=== PATIENT | female | born 1990 | race Caucasian/White ===

== ENCOUNTER → 2018-10-02 | Outpatient (CLI) | payer BC | LOC: COL.RAD 09:35 | DX: M54.5 Low back pain (principal); Z97.5 Presence of (intrauterine) contraceptive device | CPT/HCPCS: Q9967 ==

== ENCOUNTER 2023-10-17 23:33 | Inpatient (IN) | payer BC ==
[~2023-10-17] VITALS: Ht 167.6 cm; Wt 95.5 kg
--- NOTE | 2023-10-17 23:45 | NUR ---
PT TO UNIT VIA WHEELCHAIR WITH COMPLIANTS OF CTX THAT HAVE GOTTEN WORSE OVER THE LAST COUPLE OF HOURS. PT IS A G2L0 AT 38.6 WEEKS TODAY WITH A HX OF A 33 WEEK DEMISE IN 2021. PT ORIENTED TO ROOM, CHANGED INTO GOWN. EFM X2 APPLIED, VS OBTAINED, SVE OF -/-3 WITH BULGING BAG. WILL CONTRACT DR. RUIZ.
[2023-10-18] VITALS (29 sets, daily range): BP systolic 94–148; BP diastolic 51–85; PULSE 69–126; TEMP 97.8–98.4
[2023-10-18 00:26] LABS: BASO % 0.2 % (0.0-2.0); EOS # 0.1 K/mm3 (0.0-0.7); EOS % 0.5 % (0.0-4.0); GRAN # 8.1 K/mm3 (1.4-6.5); GRAN % 71.6 % (42.2-75.2); HEMATOCRIT 39.1 % (37.0-47.0); HEMOGLOBIN 13.8 g/dl (12.5-16.0); LYMPH # 1.9 K/mm3 (1.2-3.4); MEAN CELL VOLUME 90 fl (80.0-100.0); MEAN CORPUSCULAR HEMOGLOBIN 32 pg (27-31); MEAN CORPUSCULAR HGB CONC 35 g/dl (33.0-37.0); MEAN PLATELET VOLUME 10.8 fl (7.4-10.4); MONO # 1.1 K/mm3 (0.1-0.6); MONO % 10.1 % (1.7-9.3); PLATELET COUNT 165 K/mm3 (130-400); RED BLOOD COUNT 4.37 M/mm3 (4.10-5.30); REDCELL DISTRIBUTION WIDTH-CV 13.4 % (11.5-14.5)
--- NOTE | 2023-10-18 01:00 | NUR ---
[id number]: EPHEDRINE GIVEN AT 0048 FOR BP OF 94/55, FHTs REMAIN STABLE AND PT IS ASYMPTOMATIC. IMMEDIATELY FOLLOWING ADMINISTRATION A LATE DECEL INTO THE 80s OCCURRED AND RETURNED TO BASELINE IN APPROXIMATELY 1.5 MINUTES. AN EARLY DECEL INTO THE 100s OCCURRED AT 0053 AND RETURNS TO BASELINE AFTER APPROXIMATELY 1 MINUTE. BP REMAINS LOW AT 102/56, 2ND DOSE OF EPHEDRINE 10MG GIVEN IV AT 0054. FHTs REMAINS STABLE WITH BASELINE OF 135. FOLLOW UP BP AT 0058 OF 102/57. FHTs REMAIN REASSURING AND PT REMAINS ASYMPTOMATIC. NO FURTHER INTERVENTION NECESSARY.
--- NOTE | 2023-10-18 01:45 | NUR ---
[id number]: DIFFICULTY TRACING CONTRACTIONS DUE TO MATERNAL POSITION IN LEFT LATERAL WITH RIGHT LEG IN STIRRUP. TOCO ADJUSTED.
--- NOTE | 2023-10-18 02:30 | NUR ---
7568-3003: DIFFICULTY TRACING CTX PATTERN DUE TO MATERNAL POSITION IN RIGHT LATERAL WITH LEFT LEG IN STIRRIP. FHTs TACHY AT 165, DUE TO INABILITY TO TRACE CONTRACTIONS THIS NURSE UNABLE TO DETERMINE DECEL TYPE. TOCO ADJUSTED.
[2023-10-18] MEDS ORDERED: TYLENOL 500MG500 MG PO (04:23)
[2023-10-18] MEDS ORDERED: PRENATAL PO (04:24)
[2023-10-18] MEDS ORDERED: VITAMIN D31000 IU PO (04:35)
[2023-10-18] MEDS ORDERED: PRILOSEC10 MG PO (04:36)
--- NOTE | 2023-10-18 05:00 | NUR ---
0450- THIS NURSE IN ROOM TO CHECK SVE, PT COMPLETE/-1 WITH BULGING BAG OF WATER. PERICARE PROVIDED. FHTs NO LONGER TRACING, US ADJUSTED AND FHTs TRACING IN THE 60s. PT REPOSITIONED TO LEFT LATERAL, NO IMPROVEMENT NOTED. Aleyda LOMBARDO RN IN ROOM TO ASSIST. 0453- PT REPOSITIONED TO RIGHT LATERAL. DR. RUIZ NOTIFIED OF DECEL AND SVE, IS ASKED TO COME TO HOSPITAL FOR DELIVERY. STATES HE IS ON HIS WAY. 0454- Aleyda LOMBARDO RN PERFORMS SVE, SROM OCCURS, LIGHT MEC FLUID NOTED. 0456- FHTs BEGIN TO IMPROVE, BASELINE UP TO 115. 0500- BASELINE NOW OF 135. PT REMAINS IN RIGHT LATERAL.
--- NOTE | 2023-10-18 05:15 | NUR ---
0505- FLORES DCd, 330ML URINE OUT. 0511- DR. RUIZ IN ROOM TO EVALUATE PT. DR. RUIZ NOTES AN ANTERIOR LIP. PT REPOSITIONED TO ALLOW TIME TO LABOR DOWN. FHTs REMAIN REASSURING.
--- NOTE | 2023-10-18 05:55 | NUR ---
[id number]: FHTs TACHY AT 170, DEEP VARIABLES NOTED INTO THE 60'S THAT RECOVER AFTER APPROXIMATELY 1 MINUTE OR LESS. 0530- DR. RUIZ IN ROOM TO EVALUATE, PT NOW COMPLETE. 0532- PT BEGINS PUSHING WITH DR. RUIZ. 0539- SPONTANEOUS VAGINAL DELIVERY OF VIABLE BABY BOY. BABY STIMULATED AND BULB SUCTIONED BY DR. RUIZ. VIGOROUS CRY NOTED AND BABY PLACED ON MOTHER'S CHEST. CORD CLAMPED BY DR. RUIZ AND CUT BY FOB. BABY CARES ASSUMED BY Paula KULKARNI RN. 0542-SPONTANEOUS DELIVERY OF INTACT PLACENTA. PITOCIN STARTED AT 333ML/HR PER PROTOCOL. THEN BEGINS REPAIR OF PERIURETHRAL LACERATION. RED ERIKA PLACED DURING REPAIR. 0555- RECOVERY STARTED.
[2023-10-19] MEDS ORDERED: IBU800 M1 PO (09:13)
[2023-10-19 10:37] VITALS: BP 130/61; PULSE 98
== END 2023-10-19 13:00 | disposition home or self-care (01) | DRG 807 ==
LOC: LDRO 23:33 → LDR 23:34 → OB 10-18 07:45
PROVIDERS: ADMIT Obstetrics & Gynecology
PROC: 10E0XZZ Delivery of Products of Conception, External Approach (ICD-10-PCS; principal; 2023-10-18)
PROC: 0UQMXZZ Repair Vulva, External Approach (ICD-10-PCS; 2023-10-18)
DX: O77.0 Labor and delivery complicated by meconium in amniotic fluid (principal); Z37.0 Single live birth; O69.81X0 Labor and delivery complicated by cord around neck, without compression, not applicable or unspecified; O71.82 Other specified trauma to perineum and vulva; O76 Abnormality in fetal heart rate and rhythm complicating labor and delivery; Z3A.39 39 weeks gestation of pregnancy; Z23 Encounter for immunization
CPT/HCPCS: J2590; J2795; J7120

== ENCOUNTER → 2023-10-31 | Outpatient (CLI) | payer BC ==
[~2023-10-31] MED LIST: IBU800 M1 PO; PRENATAL PO; PRILOSEC10 MG PO; TYLENOL 500MG500 MG PO; VITAMIN D31000 IU PO
--- NOTE | 2023-10-31 14:29 | NUR ---
Pt, Adela Mari, presents to walk-in clinic with 13 day old baby boy, Bandar Camara and FOB Bhanu Camara. Bandar was born on [birth year]. Pt states Bandar was down 10% (7# 10oz) from weight at his appointment on 10/20/23. She was advised to supplement p . He had a gain of 3oz by the weight check the following day, so was 7# 13oz. At this point feedings include offering the breast with the nipple sheild, bottle feeding ~2oz q 2hrs, and pumping. She pumps ~q 3 hours and collects about 90ml. Today Bandar weighs 8# 6.6oz (3816 gms). assists pt to latch Bandar without the nipple shield. After nursing bilaterally he had a gain of 1.3oz (38 gms). He is placed back to each breast and pt able to latch with minimal coaching. Total gain after was 3oz (90 gms). POC: Continue ad will, if he is not content offer 1oz EBM and pump. Expect to see him eat a little more frequently with and not getting formula. F/U: Walk in clinic on Nov 05, 2023 and as scheduled with physicians. Questions invited and answered.
== END ==
LOC: LAC 12:52
DX: Z39.1 Encounter for care and examination of lactating mother (principal); Z71.89 Other specified counseling

== ENCOUNTER → 2023-11-05 | Outpatient (CLI) | payer BC ==
--- NOTE | 2023-11-05 15:59 | NUR ---
Pt, Adela Mari, presents to walk-in clinic with 18 day old baby boy, Bandar Camara, for a evaluation. They were at clinic last week to get help with latching. Pt is accompanied by her mother. Bandar was born on [birth year] and weighed 8# 8.2oz (3861 gms). Last week he weighed 8# 6.6oz (3816 gms). Pt was able to get Bandar more directly latched to the breast after last weeks visit but then fractured her left wrist and has limited mobility in a brace so she has been using the nipple shield. Today Bandar weighs 9# 0.5oz (4098 gms). She is able to latch him on the left side with the nipple shield but has not found a way to latch on the right breast so she is pumping and bottle feeding the milk from that breast. She collects about 2-2.5oz and Bandar is taking ~2oz by bottle every other feeding. teaches pt football hold and they do well with this position. Also discussed possible side-lying as an alternative. After today Bandar has a weight gain of 23.1oz (58 gms). He appears pretty content. POC: continue feeding plan, trying side-lying and football hold to see if she can get him to nurse bilaterally and not have to pump every time. F/U: Walk-in clinic as desired, as scheduled with physicians. Questions invited and answered.
== END ==
LOC: LAC 11:16
DX: Z39.1 Encounter for care and examination of lactating mother (principal); Z71.89 Other specified counseling